=== PATIENT | female | born 2005 | race Caucasian/White ===

== ENCOUNTER 2023-07-04 21:40 | Emergency (ER) | payer MEDICAID ==
[~2023-07-04] VITALS: Ht 157.5 cm; Wt 63.4 kg
[2023-07-04 21:54] VITALS: O2SAT 100
[2023-07-04 22:54] LABS: CLARITY URINE CLOUDY (CLEAR); COLOR URINE YELLOW (YELLOW); GLUCOSE URINE NEGATIVE (NEGATIVE); KETONES URINE NEGATIVE (NEGATIVE); LEUKOCYTE ESTERASE URINE 1+ (NEGATIVE); NITRITE URINE POSITIVE (NEGATIVE); OCCULT BLOOD URINE NEGATIVE (NEGATIVE); PROTEIN URINE NEGATIVE (NEGATIVE)
[2023-07-04] MEDS ORDERED: CEPH500C2 MT (23:03)
[2023-07-04] MEDS ORDERED: IBUP-2028 MT (23:03)
[2023-07-04 23:13] LABS: BACTERIA URINE 4+; RBC URINE 0-2 /hpf (0-2); SQUAMOUS EPITHELIAL CELL URINE 1+ /lpf (RARE/1+)
[2023-07-04 23:20] VITALS: BP 115/62; PULSE 92; RESP 14; TEMP 98.7
== END 2023-07-04 23:22 | disposition home or self-care (01) ==
LOC: ER 21:40
DX: N39.0 Urinary tract infection, site not specified (principal)
CPT/HCPCS: 81003; 81025; 99283

== ENCOUNTER 2024-01-16 19:48 | Emergency (ER) | payer MEDICAID, OTHER ==
[~2024-01-16] VITALS: Ht 157.5 cm; Wt 64.0 kg
[~2024-01-16 19:48] MED LIST: CEPH500C2 MT; IBUP-2028 MT
[2024-01-16 19:55] VITALS: O2SAT 99
[2024-01-16 21:05] LABS: CLARITY URINE CLOUDY (CLEAR); COLOR URINE YELLOW (YELLOW); GLUCOSE URINE NEGATIVE (NEGATIVE); KETONES URINE NEGATIVE (NEGATIVE); LEUKOCYTE ESTERASE URINE 3+ (NEGATIVE); NITRITE URINE NEGATIVE (NEGATIVE); OCCULT BLOOD URINE NEGATIVE (NEGATIVE); PROTEIN URINE NEGATIVE (NEGATIVE)
[2024-01-16 21:39] LABS: BACTERIA URINE 2+; RBC URINE 0-2 /hpf (0-2); SQUAMOUS EPITHELIAL CELL URINE 1+ /lpf (RARE/1+)
[2024-01-16] MEDS ORDERED: METR-167 MT (22:57)
[2024-01-16] MEDS ORDERED: CEPH500T MT (23:05)
[2024-01-16] MEDS ORDERED: CEFTRIAXONE SODIUM 500MG VIAL IM ONE (23:45)
[2024-01-17] MEDS: SODIUM CHLORIDE 0.9% 1,000 ML IV ONE
[2024-01-17] MEDS: ACETAMINOPHEN 325MG TABLET PO ONE (00:12)
[2024-01-17] MEDS: CEFTRIAXONE 1GM/50ML 50 ML IV ONE (00:17)
[2024-01-17 00:39] VITALS: BP 122/52; PULSE 94; RESP 18; TEMP 100.2
== END 2024-01-17 00:40 | disposition home or self-care (01) ==
LOC: ER 19:48
DX: N39.0 Urinary tract infection, site not specified (principal); N73.0 Acute parametritis and pelvic cellulitis; N76.0 Acute vaginitis
CPT/HCPCS: 99283; 81003; 81025; 96374; 96361; J0696; J7030

== ENCOUNTER 2024-01-31 17:37 | Emergency (ER) | payer OTHER ==
[~2024-01-31] VITALS: Ht 157.5 cm; Wt 64.0 kg
[~2024-01-31 17:37] MED LIST changes: +CEPH500T MT; +METR-167 MT
[2024-01-31 17:49] VITALS: O2SAT 99
[2024-01-31 18:14] LABS: CLARITY URINE CLEAR (CLEAR); COLOR URINE YELLOW (YELLOW); GLUCOSE URINE NEGATIVE (NEGATIVE); KETONES URINE TRACE (NEGATIVE); LEUKOCYTE ESTERASE URINE TRACE (NEGATIVE); NITRITE URINE NEGATIVE (NEGATIVE); OCCULT BLOOD URINE NEGATIVE (NEGATIVE); PH URINE 7.5 (4.5-8.0); PROTEIN URINE NEGATIVE (NEGATIVE); SPECIFIC GRAVITY URINE 1.024 (1.005-1.030)
[2024-01-31 19:02] LABS: BACTERIA URINE 2+; RBC URINE 0-2 /hpf (0-2); SQUAMOUS EPITHELIAL CELL URINE 1+ /lpf (RARE/1+); WBC URINE 0-2 /hpf (0-2)
[2024-01-31] MEDS ORDERED: METR60GE4 TP (20:25)
[2024-01-31 20:47] VITALS: BP 110/76; PULSE 74; RESP 18; TEMP 97.9
== END 2024-01-31 20:54 | disposition home or self-care (01) ==
LOC: ER 17:37
DX: B37.31 Acute candidiasis of vulva and vagina (principal); Z87.440 Personal history of urinary (tract) infections
CPT/HCPCS: 81003; 81025; 99283